=== PATIENT | female | born 1955 | race Caucasian/White ===

== ENCOUNTER 2019-01-13 14:28 | Emergency (ER) | payer OTHER ==
[2019-01-13] VITALS (14 sets, daily range): BP systolic 121–158; BP diastolic 74–95; Ht 167.6 cm; Wt 88.6 kg
[~2019-01-13] VITALS: Ht 167.6 cm; Wt 88.6 kg
[~2019-01-13 14:28] MED LIST: BAYER CHEWABLE81 MG PO; CALCIUM 250+D T1 TAB PO; HYDROCODON-ACE1 EAC7 PO; LEVAQUIN500 MG PO; LIPITOR20 MG
[2019-01-13] MEDS ORDERED: OMEPRAZOLE20 M1 PO (14:37)
[2019-01-13] MEDS ORDERED: LIORESAL 10 MG10 MG PO (14:37)
[2019-01-13] MEDS ORDERED: NAPROSYN500 MG PO (14:38)
[2019-01-13 15:05] LABS: BASOPHILS 0.3 % (0-2); EOSINOPHILS 3.3 % (0-7); HEMATOCRIT 41.2 % (36.0-48.0); HEMOGLOBIN 13.9 g/dL (12-16); IMMATURE GRANULOCYTES 0.3 % (0-5); LYMPHOCYTES 23.2 % (15-50); MCH 30.3 pg (26.0-34.0); MCHC 33.7 g/dL (31.0-37.0); MEAN PLATELET VOLUME 10.8 fL (7.4-10.4); MONOCYTES 8.1 % (2-11); NEUTROPHILS 64.8 % (40-80); PLATELET COUNT 190 10x3/uL (130-400); RBC 4.58 10x6/uL (4.00-5.40); RDW 14.8 % (11.5-14.5)
[2019-01-13 15:14] LABS: APTT 27.5 SECONDS (22.8-39.4); PROTIME 12.7 SECONDS (11.6-15.0)
[2019-01-13 15:19] LABS: ALBUMIN 4.2 g/dL (3.4-5.0); ALKALINE PHOSPHATASE 145 U/L (46-116); ALT (SGPT) 74 U/L (10-68); BILIRUBIN - TOTAL 0.58 mg/dL (0.2-1.3); CALC OSMOLALITY 283 mosm/kg (275-300); CALCIUM 9.1 mg/dL (8.5-10.1); CARBON DIOXIDE 24.3 mmol/L (21.0-32.0); CHLORIDE - SERUM 104 mmol/L (98-107); POTASSIUM - SERUM 3.9 mmol/L (3.5-5.1); SODIUM 140 mmol/L (136-145); UREA NITROGEN 18 mg/dL (7-18); eGFR NON AFRICAN AMERICAN 59 mL/min (90-120)
[2019-01-13 15:31] LABS: GLUCOSE 154 mg/dL (74-106)
[2019-01-13 15:35] LABS: CKMB 9.5 U/L (0.0-3.6); CREATINE KINASE 486 UL (21-215); PRO BNP 3440 pg/mL (0-125)
[2019-01-13 15:39] LABS: TROPONIN-I 0.355 ng/mL (0.000-0.060)
--- NOTE | 2019-01-13 15:39 | NUR ---
CRITICAL LAB REPORT RECEIVED. TNI 0.355 ERP NOTIIFIED. NO ORDERS RECEIVED. WILL CONTINUE TO MONITOR.
--- NOTE | 2019-01-13 19:15 | NUR ---
REPORT CALLED TO TRESA BOONE AT THIS TIME.
--- NOTE | 2019-01-13 20:40 | NUR ---
RN ANESTHESIOLOGY MAYBRY NOTIFIED OF PT . GIVEN VERBAL CLEARENCE GIVEN BY RN ANESTHESIOLOGY TO EXTOBATE PT
--- NOTE | 2019-01-13 21:10 | NUR ---
AT APPROXIMATELY 1933, THIS RN ENTERS PT ED ROOM TO MOVE PT FROM ED TO INPATIENT ROOM FOR ADMISSION. PT STATES A NEED TO USE THE RESTROOM. THIS RN ASSISTS PT 1:1 TO BATHROOM. AFTER APPROXIMATELY, 3 MINUTES THIS RN CHECKS ON PATIENT THROUGH THE BATHROOM DOOR. PT RESPONDED THAT SHE HAD FALLEN ET WAS UNABLE TO GET UP. THIS RN FORCED DOOR OPEN ET FOUND PT ON FLOOR. PT APPEARED [facility]ULTZ ET DIAPHORETIC. SHE WAS LAYING ON HER BACK. THIS RN ASKED PT IF SHE HAD HIT HER HEAD. PT RESPONDED THAT WHEN SHE WOKE UP, SHE WAS ON HER STOMACH AND HAD NOT HIT HER HEAD ON ANYTHING. SHE STATED SHE HAD ROLLED OVER ON HER BACK. PT WAS ASSISTED 3:1 FROM THE FLOOR TO A WHEELCHAIR ET WAS RETURNED TO THE ED ROOM. WHILE ASSISTING PT FROM THE WHEELCHAIR TO THE ED BED, PT BECAME LIMP ET UNRESPONSIVE. DR. GIBBS WAS CALLED TO BEDSIDE ET CPR WAS INITIATED. PLEASE SEE CODE RECORD FOR FURTHER DOCUMENTATION.
--- NOTE | 2019-01-13 21:20 | NUR ---
ELLE CONTACTED FOR ORGAN DONATION. SPOKE WITH KENIA. REFERENCE NUMBER [id number]
--- NOTE | 2019-01-13 22:39 | NUR ---
EMERITA WAKEFIELD FROM [facility] [employer]. PERSONAL BELONGINGS GIVEN TO FAMILY
--- NOTE | 2019-01-14 09:16 | MORECARE ---
CASE MANAGEMENT DISCHARGE SUMMARY PATIENT: NESTOR BISHOP UNIT: [id number] ADM DATE: 01/13/19 AGE: 63 : 57 SEX: F ROOM/BED: D.2014 AUTHOR: APOORVA LARSON PHYSICIAN: REFERRING PHYSICIAN: ADRIANA TRUONG M.D. DATE OF SERVICE: 01/14/19 Discharge Plan Patient Name: NESTOR BISHOP [facility] [facility] 1955 Planned Disposition: Anticipated Discharge Date: 01/13/19 Discharge Date: 01/14/2019 Expected LOS: 1 Initial Reviewer: [id number] Initial Review Date: 01/14/2019 Generated: 01/14/19 10:15 am Patient Name: NESTOR BISHOP Page [id number] at 0916 All edits/amendments must be made on the electronic document DICTATION DATE: 01/14/19914 [employer]CHOOL BUS MONITOR: JOSE 01/14/19914 RPT#: [id number] DC DATE:01/14/19 STATUS: DIS IN [facility] [address] [place] [address] END OF REPORT
== END 2019-01-14 10:01 ==
LOC: OBSVTIME → D.ER 14:28 → D.M2 18:16 → D.ER 18:16 → OBSVTIME 18:36 → D.ER 22:38 → D.M2 01-14 01:16 → D.ER 01-14 10:01
PROVIDERS: Emergency Medicine
DX: I21.4 Non-ST elevation (NSTEMI) myocardial infarction (principal); I25.9 Chronic ischemic heart disease, unspecified; R06.00 Dyspnea, unspecified